=== PATIENT | female | born 1980 | race Caucasian/White ===

== ENCOUNTER 2016-12-25 08:00 | Outpatient (CLI) | payer MEDICAID ==
[2016-12-27 20:50] LABS: AMPHETAMINES NEGATIVE ng/mL (< 500); BARBITURATES NEGATIVE ng/mL (< 300); BENZODIAZEPINES NEGATIVE ng/mL (< 100); MARIJUANA METABOLITE NEGATIVE ng/mL (< 20); MEDMATCH AMPHETAMINES CONSISTENT (-); MEDMATCH BARBITURATES CONSISTENT (-); MEDMATCH BENZODIAZEPINES CONSISTENT (-); MEDMATCH COCAINE METAB CONSISTENT (-); MEDMATCH MARIJUANA METAB CONSISTENT (-); MEDMATCH METHADONE METAB CONSISTENT (-); MEDMATCH OPIATES CONSISTENT (-); MEDMATCH OXYCODONE CONSISTENT (-); MEDMATCH PHENCYCLIDINE CONSISTENT (-); METHADONE METABOLITE NEGATIVE ng/mL (< 100); OPIATES NEGATIVE ng/mL (< 100); OXIDANT NEGATIVE mcg/mL (< 200); PHENCYCLIDINE NEGATIVE ng/mL (< 25)
== END 2016-12-25 23:59 | disposition home or self-care (01) ==
LOC: LAB.R 08:00
PROVIDERS: ATTEND Nurse Practitioner Family
DX: R56.9 Unspecified convulsions (principal)
CPT/HCPCS: 80307

== ENCOUNTER 2017-06-17 10:03 | Outpatient (CLI) | payer MEDICAID | END 2017-06-17 10:04 | disposition EMS.NT | LOC: EMS 10:03 | PROVIDERS: ATTEND Surgery | DX: R56.9 Unspecified convulsions (principal) ==

== ENCOUNTER 2019-07-13 17:58 | Outpatient (CLI) | payer MEDICAID | END 2019-07-13 17:59 | disposition critical access hospital (66) | LOC: EMS 17:58 | PROVIDERS: ATTEND Surgery | DX: R07.9 Chest pain, unspecified (principal); R52 Pain, unspecified; R68.83 Chills (without fever) | CPT/HCPCS: A0425; A0429; A0999 ==

== ENCOUNTER 2019-07-13 18:24 | Emergency (ER) | payer MEDICAID ==
[2019-07-13] MEDS ORDERED: SODIUM CHLORIDE 0.9% 1,000 ML IV ONE (18:51)
[2019-07-13 19:19] LABS: MUDS CUTOFF CONCENTRATIONS CUTOFF CONC BELOW:
[2019-07-13 19:27] LABS: BASOPHILS % (AUTO) 0.4 %; EOSINOPHILS % (AUTO) 0.4 %; HGB - HEMOGLOBIN 9.8 g/dL (12.0-16.0); LYMPHOCYTES # (AUTO) 1.4 10^3/uL (1.5-3.5); LYMPHOCYTES % (AUTO) 48.8 %; MEAN CORPUSCULAR HEMOGLOBIN 21.4 pg (27.0-31.0); MEAN CORPUSCULAR HGB CONC 29.1 g/dL (32.0-36.0); MEAN CORPUSCULAR VOLUME 73.6 fL (81.0-99.0); MEAN PLATELET VOLUME 9.1 fL (7.9-10.8); MONOCYTES # (AUTO) 0.2 10^3/uL (0.0-1.0); MONOCYTES % (AUTO) 7.8 %; NEUTROPHILS # (AUTO) 1.2 10^3/uL (1.5-6.6); NEUTROPHILS % (AUTO) 42.2 %; PLT - PLATELET COUNT 89 10^3/uL (130-450); RED BLOOD COUNT 4.58 10^6/uL (4.20-5.40); WHITE BLOOD COUNT 2.8 x10^3/uL (4.8-10.8)
[2019-07-13 19:30] LABS: AMPHETAMINE SCREEN,URINE NEGATIVE (NEGATIVE); BENZODIAZEPINES SCREEN, URINE NEGATIVE (NEGATIVE); COCAINE SCREEN URINE NEGATIVE (NEGATIVE); METHADONE SCREEN, URINE NEGATIVE (NEGATIVE); METHAMPHETAMINES SCREEN, URINE NEGATIVE (NEGATIVE); OPIATE SCREEN, URINE NEGATIVE (NEGATIVE); OXYCODONE SCREEN, URINE NEGATIVE (NEGATIVE); PROPOXYPHENE SCREEN, URINE NEGATIVE (NEGATIVE); TRICYCLIC ANTIDEPRESSANT,URINE NEGATIVE (NEGATIVE)
[2019-07-13 19:37] LABS: ALBUMIN 4.4 g/dL (3.2-5.5); ALBUMIN/GLOBULIN RATIO 1.3 (1.0-2.2); BILIRUBIN,TOTAL 0.8 mg/dL (0.2-1.0); CALCIUM 8.5 mg/dL (8.5-10.3); CREATININE 0.5 mg/dL (0.4-1.0); TOTAL PROTEIN 7.7 g/dL (6.7-8.2)
[2019-07-13 19:57] LABS: PLATELET ESTIMATE, MANUAL DECREASED (<130,000) (NORMAL); PLATELET MORPHOLOGY NORMAL APPEARANCE (NORMAL)
[2019-07-13 19:58] LABS: DIFFERENTIAL COMMENT MANUAL=AUTO DIFF
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
[2019-07-13] MEDS ORDERED: FOLIC ACID INJ 1 MG, THIAMINE INJ 100 MG, MAGNESIUM SULFATE 2 GM, MULTIVITAMIN 10 ML in... IV STA ×5 (21:10)
[2019-07-13] MEDS ORDERED: FOLIC ACID 5 MG/1 ML 10ML MDV ONE (21:18)
[2019-07-13] MEDS ORDERED: MAGNESIUM SULFATE 1 GM/2 ML VIAL ONE (21:18)
[2019-07-13] MEDS ORDERED: THIAMINE 100 MG/1 ML 2 ML MDV ONE (21:18)
[2019-07-13 21:22] LABS: INR 1.1 (0.8-1.2)
[2019-07-14] MEDS ORDERED: LORazepam 2 MG/ML VIAL IVP STA (05:13)
[2019-07-14 14:08] VITALS: BP 126/82
[2019-07-14] MEDS ORDERED: LORazepam 1 MG TABLET PO STA (14:17)
== END 2019-07-14 14:43 ==
LOC: EDUNIT# → ED 18:24
DX: R45.851 Suicidal ideations (principal); F10.229 Alcohol dependence with intoxication, unspecified; F17.200 Nicotine dependence, unspecified, uncomplicated
CPT/HCPCS: 36415; 80053; 80306; 80320; 82607; 82746; 83540; 83690; 84466; 85025; 85610; 96361; 96365; 99283; 99285; J2060; J3411; J8499; 80048

== ENCOUNTER 2019-07-20 01:38 | Outpatient (CLI) | payer MEDICAID | END 2019-07-20 01:39 | disposition critical access hospital (66) | LOC: EMS 01:38 | PROVIDERS: ATTEND Surgery | DX: Z72.89 Other problems related to lifestyle (principal) | CPT/HCPCS: A0425; A0429; A0999 ==

== ENCOUNTER 2019-07-20 01:56 | Emergency (ER) | payer MEDICAID ==
--- NOTE | 2019-07-20 02:03 | ED Physician Documentation ---
History of Present Illness - Stated complaint Stated Complaint: ETOH - Chief complaint Chief Complaint: Neuro - History obtained from History obtained from: Patient (limited due to intoxication, fluctuating level of cooperation), EMS - History of Present Illness Timing: Today - Additonal information Additional information: evaluated in this ED 07/13/2019 for depression and alcoholism; she was held overnight pending sobriety and then placement, and on 07/13, she was transferred to [facility]. Per medic report, patient was discharged earlier today and resumed drinking alcohol. Patient admits to drinking alcohol today. She says she hasn't slept in four days and she blames her drinking on her insomnia. She is angry at times during H+P and will not answer ROS questions. She says she wants to be readmitted to [place]. 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 - Present Medications Home Medications: Ambulatory Orders Medication Instructions Recorded Confirmed Ciprofloxacin [Cipro] 500 mg PO BID #20 tablet 04/05/13 Disulfiram [Antabuse] 500 mg PO DAILY #14 tablet 04/05/13 Lorazepam [Ativan] 1 mg PO TID PRN #20 tablet 04/05/13 Nitrofurantoin Monohyd/M-Cryst 100 mg PO 04/05/13 04/05/13 [Macrobid 100 mg Capsule] Nitrofurantoin Monohyd/M-Cryst 100 mg PO BID #10 capsule 07/20/19 [Macrobid 100 mg Capsule] - Allergies Allergies/Adverse Reactions: Allergies Allergy/AdvReac Type Severity Reaction Status Date / Time iron dextran complex Allergy Mild Diaphoresis Verified 04/05/13 17:31 - Social History Does the pt smoke?: Yes Smoking Status: Current every day smoker Does the pt drink ETOH?: Yes Does the pt have substance abuse?: No - POLST Patient has POLST: No PD ED PE NORMAL - Vitals Vital signs reviewed: Yes - General General: Alert and oriented X 3, No acute distress, Well developed/nourished, Other (strong odor s/o ethanol on breath.) - HEENT HEENT: Atraumatic, PERRL, EOMI, Moist mucous membranes - Cardiac Cardiac: RRR, No murmur - Respiratory Respiratory: No respiratory distress, Clear bilaterally - Abdomen Abdomen: Soft, Non tender - Derm Derm: Normal color, Warm and dry - Neuro Eye Opening: Spontaneous Motor: Obeys Commands Verbal: Oriented GCS Score: 15 PD ED PE EXPANDED - Psych Psych: Intoxicated / AOB, Withdrawn (withdrawn at times, but also becomes angry at times without provocation. she is not violent nor threatening) Results - Vitals Vitals: Vital Signs - 24 hr 07/20/19 07/20/19 07/20/19 01:59 05:53 11:39 Temperature 36.6 C 37.0 C Heart Rate 82 89 Respiratory 17 22 Rate Blood Pressure 106/76 92/66 89/63 L O2 Saturation 97 100 Oxygen O2 Source Room air - Labs Labs: Laboratory Tests 07/20/19 07/20/19 07/20/19 02:29 02:29 02:41 WBC 4.0 L RBC 4.61 Hgb 10.1 L Hct 35.3 L MCV 76.6 L MCH 21.9 L MCHC 28.6 L RDW 23.4 H Plt Count 175 MPV 9.8 Neut # (Auto) 1.7 Lymph # (Auto) 1.8 [place] # (Auto) 0.3 Eos # (Auto) 0.1 Baso # (Auto) 0.0 Absolute Nucleated RBC 0.00 Nucleated RBC % 0.0 Manual Slide Review Indicated Platelet Estimate NORMAL (130-450,000) Platelet Morphology NORMAL APPEARANCE RBC Morph Micro Appear 2+ HYPOCHROMASIA Sodium 145 Potassium 3.8 Chloride 111 Carbon Dioxide 23 Anion Gap 11.0 BUN 7 Creatinine 0.4 Estimated GFR (MDRD) 176 Glucose 116 H Calcium 9.1 Total Bilirubin 0.5 AST 189 H ALT 249 H Alkaline Phosphatase 95 Total Protein 8.2 Albumin 4.6 Globulin 3.6 Albumin/Globulin Ratio 1.3 Lipase 51 Urine Color Urine Clarity Urine pH Ur Specific [place] Urine Protein Urine Glucose (UA) Urine Ketones Urine Occult Blood Urine Nitrite Urine Bilirubin Urine Urobilinogen Ur Leukocyte Esterase Urine RBC Urine WBC Ur Squamous Epith Cells Urine Bacteria Ur Microscopic Review Urine Culture Comments Urine HCG, Qual Salicylates < 6.0 Urine Opiates Screen NEGATIVE Ur Oxycodone Screen NEGATIVE Urine Methadone Screen NEGATIVE Ur Propoxyphene Screen NEGATIVE Acetaminophen < 10 L Ur Barbiturates Screen NEGATIVE Ur Tricyclics Screen NEGATIVE Ur Phencyclidine Scrn NEGATIVE Ur Amphetamine Screen NEGATIVE U Methamphetamines Scrn NEGATIVE U Benzodiazepines Scrn NEGATIVE Urine Cocaine Screen NEGATIVE U Cannabinoids Screen NEGATIVE Ethyl Alcohol 365.2 07/20/19 02:41 WBC RBC Hgb Hct MCV MCH MCHC RDW Plt Count MPV Neut # (Auto) Lymph # (Auto) [place] # (Auto) Eos # (Auto) Baso # (Auto) Absolute Nucleated RBC Nucleated RBC % Manual Slide Review Platelet Estimate Platelet Morphology RBC Morph Micro Appear Sodium Potassium Chloride Carbon Dioxide Anion Gap BUN Creatinine Estimated GFR (MDRD) Glucose Calcium Total Bilirubin AST ALT Alkaline Phosphatase Total Protein Albumin Globulin Albumin/Globulin Ratio Lipase Urine Color YELLOW Urine Clarity SL. CLOUDY Urine pH 5.5 Ur Specific [place] <=1.005 Urine Protein NEGATIVE Urine Glucose (UA) NEGATIVE Urine Ketones NEGATIVE Urine Occult Blood NEGATIVE Urine Nitrite POSITIVE H Urine Bilirubin NEGATIVE Urine Urobilinogen 0.2 (NORMAL) Ur Leukocyte Esterase LARGE H Urine RBC None Seen Urine WBC 11-25 H Ur Squamous Epith Cells RARE Squamous Urine Bacteria Few Ur Microscopic Review INDICATED Urine Culture Comments INDICATED Urine HCG, Qual NEGATIVE Salicylates Urine Opiates Screen Ur Oxycodone Screen Urine Methadone Screen Ur Propoxyphene Screen Acetaminophen Ur Barbiturates Screen Ur Tricyclics Screen Ur Phencyclidine Scrn Ur Amphetamine Screen U Methamphetamines Scrn U Benzodiazepines Scrn Urine Cocaine Screen U Cannabinoids Screen Ethyl Alcohol PD MEDICAL DECISION MAKING - ED course Complexity details: reviewed old records, reviewed results, re-evaluated patient, considered differential, d/w patient ED course: Patient signed out to Dr. London at end of my shift, pending sobriety for SW consult Departure - Departure Disposition: 01 Home, Self Care Clinical Impression: Alcohol intoxication, Urinary tract infection Condition: Fair Instructions: ED Alcohol Intoxication, ED UTI Cystitis Female Prescriptions: Nitrofurantoin Monohyd/M-Cryst [Macrobid 100 mg Capsule] 100 mg PO BID #10 capsule Discharge Date/Time: 07/20/19 12:07
[2019-07-20] MEDS ORDERED: LORazepam 0.5 MG TABLET PO STA (02:04)
[2019-07-20 02:34] LABS: BASOPHILS % (AUTO) 0.3 %; EOSINOPHILS # (AUTO) 0.1 10^3/uL (0.0-0.7); EOSINOPHILS % (AUTO) 1.5 %; HGB - HEMOGLOBIN 10.1 g/dL (12.0-16.0); LYMPHOCYTES # (AUTO) 1.8 10^3/uL (1.5-3.5); LYMPHOCYTES % (AUTO) 46.1 %; MEAN CORPUSCULAR HEMOGLOBIN 21.9 pg (27.0-31.0); MEAN CORPUSCULAR HGB CONC 28.6 g/dL (32.0-36.0); MEAN CORPUSCULAR VOLUME 76.6 fL (81.0-99.0); MEAN PLATELET VOLUME 9.8 fL (7.9-10.8); MONOCYTES # (AUTO) 0.3 10^3/uL (0.0-1.0); MONOCYTES % (AUTO) 8.3 %; NEUTROPHILS # (AUTO) 1.7 10^3/uL (1.5-6.6); NEUTROPHILS % (AUTO) 43.3 %; PLT - PLATELET COUNT 175 10^3/uL (130-450); RED BLOOD COUNT 4.61 10^6/uL (4.20-5.40); RED CELL DISTRIBUTION WIDTH 23.4 % (12.0-15.0)
[2019-07-20 02:50] LABS: ACETAMINOPHEN < 10 ug/mL (10-30); ALBUMIN 4.6 g/dL (3.2-5.5); ALBUMIN/GLOBULIN RATIO 1.3 (1.0-2.2); ALKALINE PHOSPHATASE 95 IU/L (42-121); ALT ALANINE AMINOTRANSFERASE 249 IU/L (10-60); AST ASPARTATE AMINOTRANSFERASE 189 IU/L (10-42); BILIRUBIN,TOTAL 0.5 mg/dL (0.2-1.0); BUN - BLOOD UREA NITROGEN 7 mg/dL (6-20); CALCIUM 9.1 mg/dL (8.5-10.3); CARBON DIOXIDE - CO2 23 mmol/L (21-32); CHLORIDE 111 mmol/L (101-111); CREATININE 0.4 mg/dL (0.4-1.0); GLUCOSE 116 mg/dL (70-100); LIPASE 51 U/L (22-51); SALICYLATE < 6.0 mg/dL; SODIUM 145 mmol/L (135-145); TOTAL PROTEIN 8.2 g/dL (6.7-8.2)
[2019-07-20 02:51] LABS: MUDS CUTOFF CONCENTRATIONS CUTOFF CONC BELOW:
[2019-07-20 02:52] LABS: BILIRUBIN,URINE NEGATIVE (NEGATIVE); GLUCOSE, URINE (UA) NEGATIVE (NEGATIVE); KETONES,URINE (UA) NEGATIVE (NEGATIVE); LEUKOCYTE ESTERASE, URINE LARGE (NEGATIVE); NITRITE,URINE POSITIVE (NEGATIVE); OCCULT BLOOD,URINE NEGATIVE (NEGATIVE); PH,URINE 5.5 PH (5.0-7.5); PROTEIN,URINE NEGATIVE (NEGATIVE); UROBILINOGEN,URINE 0.2 (NORMAL) E.U./dL (NORMAL)
[2019-07-20 02:54] LABS: CLARITY,URINE SL. CLOUDY (CLEAR); HCG UR QUAL NEGATIVE
[2019-07-20 02:57] LABS: BACTERIA,URINE Few /HPF (None Seen); RBC,URINE None Seen /HPF (0-5); SQUAMOUS EPITHELIAL CELL,UR RARE Squamous (<= Few)
[2019-07-20] MEDS ORDERED: NITROFURANTOIN MACRO 100 MG CAPSULE PO STA (03:01)
[2019-07-20 03:03] LABS: AMPHETAMINE SCREEN,URINE NEGATIVE (NEGATIVE); BENZODIAZEPINES SCREEN, URINE NEGATIVE (NEGATIVE); COCAINE SCREEN URINE NEGATIVE (NEGATIVE); METHADONE SCREEN, URINE NEGATIVE (NEGATIVE); METHAMPHETAMINES SCREEN, URINE NEGATIVE (NEGATIVE); OPIATE SCREEN, URINE NEGATIVE (NEGATIVE); OXYCODONE SCREEN, URINE NEGATIVE (NEGATIVE); PROPOXYPHENE SCREEN, URINE NEGATIVE (NEGATIVE); TRICYCLIC ANTIDEPRESSANT,URINE NEGATIVE (NEGATIVE)
[2019-07-20 03:06] LABS: PLATELET ESTIMATE, MANUAL NORMAL (130-450,000) (NORMAL); PLATELET MORPHOLOGY NORMAL APPEARANCE (NORMAL)
--- NOTE | 2019-07-20 10:05 | ED Physician Documentation ---
ED Addendum - Addendum Addendum: 07/20/19 10:02 The patient has been resting comfortably this morning in the ER. No notable withdrawal symptoms at this time. Social work came to talk with her regarding detox and there was bed availability at [facility] where the patient had recently been. The information was referred to [facility] for review and likely will accept her. We will watch for withdrawal symptoms and treat accordingly. She is given breakfast. No other problems at this time. She is denying suicidal ideation right now.
[2019-07-20 11:41] VITALS: BP 89/63
== END 2019-07-20 12:07 | disposition home or self-care (01) ==
LOC: EDUNIT# → EEVIPCON 01:56 → ED 01:56
DX: F10.129 Alcohol abuse with intoxication, unspecified (principal); N39.0 Urinary tract infection, site not specified; F17.200 Nicotine dependence, unspecified, uncomplicated
CPT/HCPCS: 36415; 80053; 80306; 80307; 80320; 80329; 81001; 81025; 83690; 85025; 87086; 87181; 99281; 99283; A9270; 81003

== ENCOUNTER 2020-03-18 13:54 | Outpatient (CLI) | payer MEDICAID | END 2020-03-18 13:55 | disposition critical access hospital (66) | LOC: EMS 13:54 | PROVIDERS: ATTEND Surgery | DX: R56.9 Unspecified convulsions (principal) | CPT/HCPCS: A0425; A0427; A0999 ==

== ENCOUNTER 2020-03-18 14:15 | Inpatient (IN) | payer MEDICAID ==
[2020-03-18] MEDS ORDERED: ONDANSETRON 4 MG/2 ML VIAL IVP STA (14:26)
[2020-03-18] MEDS ORDERED: THIAMINE INJ 100 MG in SODIUM CHLORIDE 0.9% 50 ML IV STA (14:26)
[2020-03-18] MEDS ORDERED: LORazepam 2 MG/ML VIAL IVP STA ×2 (14:26→15:29)
[2020-03-18] MEDS ORDERED: SODIUM CHLORIDE 0.9% 1,000 ML IV STA (14:26)
--- NOTE | 2020-03-18 14:27 | ED Physician Documentation ---
PD HPI SEIZURE - Stated complaint Stated Complaint: SEIZURE - Chief complaint Chief Complaint: Neuro - History obtained from History obtained from: Patient - Additional information Additional information: 39-year-old woman with history of alcoholism quit drinking yesterday. Today she had carpopedal spasms and then syncope with potential seizure activity. She has had alcohol withdrawal seizures in the past. Denies headache. She has had mild auditory hallucinations doorbell is ringing or somebody is knocking when nobody there. 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 - Present Medications Home Medications: Ambulatory Orders Medication Instructions Recorded Confirmed Ciprofloxacin [Cipro] 500 mg PO BID #20 tablet 04/05/13 Disulfiram [Antabuse] 500 mg PO DAILY #14 tablet 04/05/13 Lorazepam [Ativan] 1 mg PO TID PRN #20 tablet 04/05/13 Nitrofurantoin Monohyd/M-Cryst 100 mg PO 04/05/13 04/05/13 [Macrobid 100 mg Capsule] Nitrofurantoin Monohyd/M-Cryst 100 mg PO BID #10 capsule 07/20/19 [Macrobid 100 mg Capsule] - Allergies Allergies/Adverse Reactions: Allergies Allergy/AdvReac Type Severity Reaction Status Date / Time iron dextran complex Allergy Mild Diaphoresis Verified 03/18/20 14:20 - Social History Does the pt smoke?: Yes Smoking Status: Current every day smoker Does the pt drink ETOH?: Yes Does the pt have substance abuse?: No - POLST Patient has POLST: No PD ED PE NORMAL - Vitals Vital signs reviewed: Yes - General General: Alert and oriented X 3, Other (She appears quite shaky with coarse tremors in the upper extremities.) - HEENT HEENT: PERRL, EOMI - Neck Neck: Supple, no meningeal sign, No bony TTP - Cardiac Cardiac: RRR, No murmur - Respiratory Respiratory: No respiratory distress, Clear bilaterally - Abdomen Abdomen: Non tender - Back Back: No CVA TTP, No spinal TTP - Derm Derm: Normal color, Warm and dry - Extremities Extremities: No edema, No calf tenderness / cord - Neuro Neuro: Alert and oriented X 3, No motor deficit, No sensory deficit, Normal speech Results - Vitals Vitals: Vital Signs - 24 hr 03/18/20 03/18/20 14:20 14:25 Temperature 36.6 C 36.7 C Heart Rate 88 88 Respiratory 16 16 Rate Blood Pressure 122/86 H 122/86 H O2 Saturation 98 98 Oxygen O2 Source Room air - Labs Labs: Laboratory Tests 03/18/20 03/18/20 14:35 14:35 WBC 2.9 L RBC 3.43 L Hgb 8.4 L Hct 29.2 L MCV 85.1 MCH 24.5 L MCHC 28.8 L RDW 21.8 H Plt Count 148 MPV 7.9 Neut # (Auto) 2.2 Lymph # (Auto) 0.5 L Mcmullen # (Auto) 0.3 Eos # (Auto) 0.0 Baso # (Auto) 0.0 Absolute Nucleated RBC 0.00 Band Neuts % (Manual) Not Reportable Abnorm Lymph % (Manual) Not Reportable Nucleated RBC % 0.0 Neutrophils # (Manual) Not Reportable Lymphocytes # (Manual) Not Reportable Monocytes # (Manual) Not Reportable Eosinophils # (Manual) Not Reportable Basophils # (Manual) Not Reportable Differential Comment MANUAL=AUTO DIFF Manual Slide Review Indicated Platelet Estimate NORMAL (130-450,000) Platelet Morphology NORMAL APPEARANCE RBC Morph Micro Appear 1+ POLYCHROMASIA Sodium 140 Potassium 2.5 L* Chloride 93 L Carbon Dioxide 19 L Anion Gap 28.0 H BUN 7 Creatinine 0.6 Estimated GFR (MDRD) 110 Glucose 83 Calcium 7.9 L Magnesium 0.9 L* Total Bilirubin 1.7 H AST 133 H ALT 30 Alkaline Phosphatase 162 H Total Protein 7.2 Albumin 3.8 Globulin 3.4 Albumin/Globulin Ratio 1.1 Lipase 40 Ethyl Alcohol 106.9 PD MEDICAL DECISION MAKING - ED course ED course: 39-year-old woman presents after an alcohol withdrawal seizure. She is quite shaky. CIWA score is 24. Has significant electrolyte abnormality anemia and hypomagnesemia. She was administered both IV and oral potassium, IV magnesium, and divided doses of lorazepam in the department. Also IV thiamine. Given the high CIWA score and significant electrolyte abnormalities she was presented to Dr. Comer for admission at 3:30 PM. Departure - Departure Disposition: 66 [facility] DC/Xfer Clinical Impression: Hypokalemia, Hypomagnesemia Alcohol withdrawal seizure Qualifiers: Complication of substance-induced condition: with perceptual disturbance Qualified Code(s): F10.232 - Alcohol dependence with withdrawal with perceptual disturbance; R56.9 - Unspecified convulsions Condition: Serious
[2020-03-18 14:40] LABS: BASOPHILS % (AUTO) 1.4 %; EOSINOPHILS % (AUTO) 0.3 %; HGB - HEMOGLOBIN 8.4 g/dL (12.0-16.0); LYMPHOCYTES # (AUTO) 0.5 10^3/uL (1.5-3.5); LYMPHOCYTES % (AUTO) 15.6 %; MEAN CORPUSCULAR HEMOGLOBIN 24.5 pg (27.0-31.0); MEAN CORPUSCULAR HGB CONC 28.8 g/dL (32.0-36.0); MEAN CORPUSCULAR VOLUME 85.1 fL (81.0-99.0); MEAN PLATELET VOLUME 7.9 fL (7.9-10.8); MONOCYTES # (AUTO) 0.3 10^3/uL (0.0-1.0); MONOCYTES % (AUTO) 8.5 %; NEUTROPHILS # (AUTO) 2.2 10^3/uL (1.5-6.6); NEUTROPHILS % (AUTO) 73.9 %; PLT - PLATELET COUNT 148 10^3/uL (130-450); RED BLOOD COUNT 3.43 10^6/uL (4.20-5.40); RED CELL DISTRIBUTION WIDTH 21.8 % (12.0-15.0); WHITE BLOOD COUNT 2.9 x10^3/uL (4.8-10.8)
[2020-03-18 14:59] LABS: ALBUMIN 3.8 g/dL (3.2-5.5); ALBUMIN/GLOBULIN RATIO 1.1 (1.0-2.2); BILIRUBIN,TOTAL 1.7 mg/dL (0.2-1.0); CALCIUM 7.9 mg/dL (8.5-10.3); CREATININE 0.6 mg/dL (0.4-1.0); TOTAL PROTEIN 7.2 g/dL (6.7-8.2)
[2020-03-18 15:00] LABS: MAGNESIUM 0.9 mg/dL (1.7-2.8)
[2020-03-18] MEDS ORDERED: MAGNESIUM SULFATE 2 GRAM 2 GM/50 ML BAG IV ONE (15:01)
[2020-03-18] MEDS ORDERED: POTASSIUM CHLORIDE 20 MEQ TABLET PO STA (15:01)
[2020-03-18] MEDS ORDERED: POTASSIUM CHLOR 10 MEQ/100 ML 10 MEQ/100 ML BAG IV ONE (15:01)
[2020-03-18 15:15] LABS: DIFFERENTIAL COMMENT MANUAL=AUTO DIFF; PLATELET ESTIMATE, MANUAL NORMAL (130-450,000) (NORMAL); PLATELET MORPHOLOGY NORMAL APPEARANCE (NORMAL)
[2020-03-18] MEDS ORDERED: SODIUM CHLORIDE FLUSH 0.9% 10 ML SYRINGE IVP PRN (15:59)
[2020-03-18] MEDS ORDERED: IBUPROFEN 600 MG TABLET PO PRN (15:59)
[2020-03-18] MEDS ORDERED: LORazepam 2 MG/ML VIAL IVP PRN (16:03)
[2020-03-18 16:31] LABS: BASOPHILS % (AUTO) 0.5 %; EOSINOPHILS % (AUTO) 0.8 %; HGB - HEMOGLOBIN 7.7 g/dL (12.0-16.0); LYMPHOCYTES # (AUTO) 0.4 10^3/uL (1.5-3.5); LYMPHOCYTES % (AUTO) 10.3 %; MEAN CORPUSCULAR HGB CONC 29.5 g/dL (32.0-36.0); MEAN CORPUSCULAR VOLUME 84.7 fL (81.0-99.0); MEAN PLATELET VOLUME 8.7 fL (7.9-10.8); MONOCYTES # (AUTO) 0.4 10^3/uL (0.0-1.0); MONOCYTES % (AUTO) 8.8 %; NEUTROPHILS # (AUTO) 3.2 10^3/uL (1.5-6.6); NEUTROPHILS % (AUTO) 79.3 %; PLT - PLATELET COUNT 145 10^3/uL (130-450); RED BLOOD COUNT 3.08 10^6/uL (4.20-5.40); RED CELL DISTRIBUTION WIDTH 21.3 % (12.0-15.0)
[2020-03-18 16:32] LABS: INR 1.2 (0.8-1.2); PT - PROTHROMBIN TIME 13.6 secs (9.9-12.6)
[2020-03-18 17:15] LABS: MUDS CUTOFF CONCENTRATIONS CUTOFF CONC BELOW:
[2020-03-18 17:19] LABS: GLUCOSE, URINE (UA) NEGATIVE (NEGATIVE); KETONES,URINE (UA) 40 mg/dL (NEGATIVE); LEUKOCYTE ESTERASE, URINE NEGATIVE (NEGATIVE); NITRITE,URINE NEGATIVE (NEGATIVE); OCCULT BLOOD,URINE NEGATIVE (NEGATIVE); PROTEIN,URINE NEGATIVE (NEGATIVE); UROBILINOGEN,URINE 2 E.U./dL (NORMAL)
[2020-03-18 17:22] LABS: BILIRUBIN,URINE NEGATIVE (NEGATIVE); CLARITY,URINE CLOUDY (CLEAR); HCG UR QUAL NEGATIVE; ICTOTEST,URINE NEGATIVE
[2020-03-18 17:29] LABS: AMORPHOUS SEDIMENT,UR Rare /LPF; BACTERIA,URINE Many /HPF (None Seen); RBC,URINE 0-5 /HPF (0-5); SQUAMOUS EPITHELIAL CELL,UR FEW Squamous (<= Few)
[2020-03-18 17:30] LABS: AMPHETAMINE SCREEN,URINE NEGATIVE (NEGATIVE); BENZODIAZEPINES SCREEN, URINE POSITIVE (NEGATIVE); COCAINE SCREEN URINE NEGATIVE (NEGATIVE); METHADONE SCREEN, URINE NEGATIVE (NEGATIVE); METHAMPHETAMINES SCREEN, URINE NEGATIVE (NEGATIVE); OPIATE SCREEN, URINE NEGATIVE (NEGATIVE); OXYCODONE SCREEN, URINE NEGATIVE (NEGATIVE); PROPOXYPHENE SCREEN, URINE NEGATIVE (NEGATIVE); TRICYCLIC ANTIDEPRESSANT,URINE NEGATIVE (NEGATIVE)
[2020-03-18 17:50] LABS: PLATELET ESTIMATE, MANUAL NORMAL (130-450,000) (NORMAL); PLATELET MORPHOLOGY NORMAL APPEARANCE (NORMAL)
[2020-03-18] MEDS: SODIUM CHLORIDE FLUSH 0.9% 10 ML SYRINGE IVP SCH (17:58)
[2020-03-18] MEDS ORDERED: POTASSIUM CHLOR 10 MEQ/100 ML 10 MEQ/100 ML BAG IV SCH (19:00)
--- NOTE | 2020-03-18 20:11 | HISTORY & PHYSICAL EXAMINATION ---
DATE OF SERVICE: 03/18/2020 Physician: Suri Comer MD HISTORY OF PRESENT ILLNESS: This is a 39-year-old female of descent, who has a history of alcohol abuse. She drinks one gallon of vodka per day as shots. She has never been admitted here before. She describes that occasionally, when she decreases her drinking, she gets alcohol withdrawal seizures. Two months ago, she went to [facility] to visit family members, where she started to have cyclical nausea and vomiting, thinks she was also throwing up blood at the time. When she returned from [facility], she needed hospitalization at [facility] for about 4 days for alcohol withdrawal seizures and was on Valium. At that point, she was connected with a therapist who has been helping her decrease alcohol abuse, and she has decreased the alcohol intake over the past 6 weeks from one gallon a day of vodka to one- half a gallon a day. The patient's history shows that she was homeless, living in a trailer with her boyfriend. She now tells me that she lives in a hotel and gets SSI. Her boyfriend intermittently goes to take care of his elderly mother. Today, while the patient was at her future in-laws house she had a seizure. She was offered to be taken to the emergency room by her boyfriend and, as she was walking to the car, she had a second seizure. An ambulance was called. In the ER, she was noted to have a CIWA score of greater than 20 with arm tremors mostly. She stated that her last alcohol intake was one day previously, none today. She also was found on labs to have marked electrolyte abnormalities with a potassium of 2.5, and magnesium of 0.9. PAST MEDICAL HISTORY: Alcohol abuse and bipolar disorder. ALLERGIES: IRON DEXTRAN COMPLEX. MEDICATIONS: None. FAMILY HISTORY: No inherited diseases. SOCIAL HISTORY: The patient smokes one cigarette a day, drinks alcohol as described above, uses marijuana infrequently, and no other drug abuse history. She is not working, gets SSI. She is currently "living in a hotel room." She was recently homeless. REVIEW OF SYSTEMS: She has not had any recent hematemesis. She describes intermittent poor appetite, sometimes 3 days in a row, and she currently has no appetite. She states that she "craves salt." There has been no fever, cough, or cardiac or pulmonary symptoms. She denies any leg edema or abdominal distention. She currently has mild abdominal tenderness. A comprehensive review of systems was performed and the pertinent positives are listed, the rest are negative. PHYSICAL EXAMINATION GENERAL: Middle-aged female of descent, who is in no distress. VITAL SIGNS: Blood pressure 122/86, heart rate of 88 in sinus rhythm, afebrile, room air saturation 100%. HEENT: Unremarkable. She has moist oral mucosa and good dentition. NECK: No JVD at a 30-degree upright angle. CHEST: Clear. HEART: Normal heart sounds. No murmurs. ABDOMEN: Soft. No organomegaly. No fluid wave. Normal bowel sounds. Tenderness to mild palpation in the epigastrium and left upper quadrant. There is no guarding or rebound. EXTREMITIES: No clubbing, cyanosis, or edema. NEUROLOGIC: Fine resting tremor of her hands. No nystagmus. No liver flap. LABORATORY DATA: Sodium 140, potassium 2.5, chloride 93, anion gap 28, BUN 7, creatinine 0.6, calcium 7.9, but albumin is 3.8, magnesium 0.9, bilirubin 1.7, AST 133, ALT 30, and alkaline phosphatase 162. INR of 1.2. White blood count 4.0, hemoglobin 7.7, and platelet count 145. Urinalysis had positive ketones, positive urobilinogen, high white blood cells, many bacteria, and a culture is indicated. Her urine hCG is negative. Her urine tox screen shows positive benzodiazepines. Her serum alcohol level was present at 106. IMPRESSION/DIAGNOSES 1. Alcohol withdrawal seizure. 3. Hypokalemia. 4. Hypomagnesemia. 5. Alcohol abuse. 6. Transaminitis. 7. Leukopenia. 8. Anemia. 9. History of bipolar disorder. PLAN: Admit the patient to inpatient status on telemetry. Begin a CIWA protocol using Ativan p.r.n. and also begin scheduled Librium for prevention of alcohol withdrawal. Start IV fluids with a banana bag containing magnesium, thiamine, multivitamin. Replace her potassium and magnesium with riders if needed. Order a bland diet. Will order guaiac of her stool because of the description of vomiting blood several weeks ago. Follow her electrolytes daily. Continue with outpatient alcohol abuse management as she has already been connected with. floorworker here to confirm that after discharge. DEEP VENOUS THROMBOSIS PROPHYLAXIS: SCDs. CODE STATUS: FULL CODE. ATTESTATION: Patient is expected to be discharged or transferred to another facility within 96 hours: Yes. cc: JAVIER Muhammad TD: 03/18/2020 19:00 [facility]
[2020-03-18] MEDS: chlordiazePOXIDE 25 MG CAPSULE PO SCH (21:41)
[2020-03-18] MEDS: FAMOTIDINE 20 MG/2 ML VIAL IVP SCH (21:42)
[2020-03-19] MEDS: SODIUM CHLORIDE FLUSH 0.9% 10 ML SYRINGE IVP SCH ×2 (00:23→08:30)
[2020-03-19 05:59] LABS: ALBUMIN 3.6 g/dL (3.2-5.5); ALBUMIN/GLOBULIN RATIO 1.2 (1.0-2.2); BILIRUBIN,TOTAL 1.6 mg/dL (0.2-1.0); CREATININE 0.4 mg/dL (0.4-1.0); MAGNESIUM 1.4 mg/dL (1.7-2.8); PHOSPHORUS 2.7 mg/dL (2.5-4.6); TOTAL PROTEIN 6.5 g/dL (6.7-8.2)
[2020-03-19] MEDS ORDERED: MAGNESIUM SULFATE 2 GRAM 2 GM/50 ML BAG IV ONE (06:04)
[2020-03-19] MEDS: POTASSIUM CHLOR 10 MEQ/100 ML 10 MEQ/100 ML BAG IV SCH ×4 (08:22→11:31)
[2020-03-19] MEDS: chlordiazePOXIDE 25 MG CAPSULE PO SCH (08:29)
[2020-03-19] MEDS: FAMOTIDINE 20 MG/2 ML VIAL IVP SCH (08:45)
[2020-03-19] MEDS ORDERED: polyethylene glycoL 3350 17 GM PACKET PO SCH (09:00)
[2020-03-19] MEDS ORDERED: DOCUSATE SODIUM 250 MG CAPSULE PO SCH (09:00)
[2020-03-19] MEDS ORDERED: SENNA 8.6 MG TABLET PO SCH (09:00)
[2020-03-19] MEDS ORDERED: MULTIVITAMIN 10 ML, FOLIC ACID INJ 1 MG, THIAMINE INJ 100 MG, MAGNESIUM SULFATE 2 GM in... IV SCH ×5 (09:00)
--- NOTE | 2020-03-19 09:17 | PHARMACY PROGRESS NOTE ---
- Best Possible Medication History Admit Date and Time: 03/18/20 1546 Processed by: Pharmacy Medication History completed: Yes Patient Interview: Pt interview ONLY source (NO HOME MEDICATIONS PER PATIENT INTERVIEW) As the person ultimately responsible for medication therapy, providers are able to order a medication from an existing home medication list in [facility] via the "Reconcile Routine" prior to Confirmation of that medication by clerical support specialist. Such practice is discouraged except when the physician, in their clinical judgment, deems that a medical need exists for a medication without regard to previous use.
--- NOTE | 2020-03-19 11:38 | Discharge Plan ---
Discharge Plan Problem Reviewed?: Yes Disposition: Home, Self Care Condition: Fair Prescriptions: chlordiazePOXIDE [Librium] 25 mg PO BID #5 capsule Thiamine [Vitamin B-1] 100 mg PO DAILY #30 tablet Diet: Soft Activity Restrictions: Activity as Tolerated Health Concerns: You were admitted to the hospital because of 2 alcohol-withdrawal seizures. You were also dehydrated and there was still alcohol in your blood stream. You are being discharged home with advice to stop alcohol intake. Several tablets of Librium have been prescribed to taper you down. A new prescription for Thiamine is also ordered which helps in patient's with alcohol abuse. Drink plenty of fluids (non-alcoholic) and stay well-hydrated. Continued to follow with your counselor regarding stopping alcohol abuse. Plan of Treatment: As above. Care Goals: Improvement in symptoms and stabilization are the goals. Assessment: Patient understands, instructions were provided for reminders. Additional Instructions or Follow Up instructions: If you have new or worsening symptoms, call your PCP or your Counselor for advice, or come to the ER. No Smoking: If you smoke, Please STOP! Call for help. Follow-up with: Yadi Denson ARNP [Physician No Access] -
--- NOTE | 2020-03-19 12:14 | DISCHARGE SUMMARY ---
Discharge Summary Admit Date: 03/18/20 Discharge Date: 03/19/20 Discharging Provider: Dr Suri Comer Primary Care Provider: Yadi Denson NP Code Status: Attempt Resuscitation Condition at Discharge: Fair Discharge Disposition: 01 Home, Self Care - HPI History of Present Illness: This is a 39 year-old women of descent, with a history of bipolar disorder and alcohol abuse; she drinks a gallon of vodka daily. She gets alcohol withdrawal seizures. About 2 months ago, she was visiting family in [facility] and had hematemesis. When she returned, she was hospitalized in [facility] for 4 days for alcohol withdrawal seizure and was treated with Valium and at discharge, started seeing a counselor for outpatient alcohol detox and rehab. In the past 6 weeks, she has decreased her alcohol intake to 1/2 gallon of vodka daily. She takes no meds. She was at her boyfriend's parents home, had not had alcohol for several hours and had a seizure. She awoke and they were planning for the boyfriend to drive her to an ER, when she had another seizure. EMS was called and she was bought to the ER here. Her CIWA score was over 20, mostly from tremors. She was also found to have severe electrolyte abnormalities with Potassium of 2.5 and Magnesium of 0.9. Her serum alcohol level was 106, bili was 1.7, AST 133, ALT 30, Alk Phos 162. She will be admitted for managing alcohol withdrawal seizures, alcohol abuse and her abnormal labs. - HOSPITAL COURSE Hospital Course: 1) Alcohol withdrawal seizures There were no more seizures. She was treated with Ativan prn per CIWA score and started on scheduled Librium 25 mg po bid, and was discharged with several tablets of Librium. 2) Hypokalemia This was replaced with K riders. 3) Hypomagnesemia This was replaced iv. 4) Alcohol abuse She received a banana bag for iv hydration and was discharged with Thiamine oral. She was seen by Social Work and advised to resume her outpatient management with her counselor. 5) Transaminitis The liver tests improved slightly to ALT 109, AST was 31 and bili 1.6 6) Leukopenia She very likely has marrow suppression from alcohol. The WBC was 2.9 at admission, and 4.0 at discharge. 7) Anemia As above and hemodilutional. The admission Hgb was 8.4 and 7.7 at discharge. 8) History of bipolar disorder She was on n o prescription meds for this currently. - ALLERGIES Allergies/Adverse Reactions: Allergies Allergy/AdvReac Type Severity Reaction Status Date / Time iron dextran complex Allergy Mild Diaphoresis Verified 03/18/20 14:20 - MEDICATIONS Home Medications: Ambulatory Orders Medication Instructions Recorded Confirmed Thiamine [Vitamin B-1] 100 mg PO DAILY #30 tablet 03/19/20 chlordiazePOXIDE [Librium] 25 mg PO BID #5 capsule 03/19/20 - PHYSICAL EXAM AT DISCHARGE General Appearance: positive: No acute distress, Alert Eyes Bilateral: positive: Normal inspection, EOMI ENT: positive: ENT inspection nml, No signs of dehydration Neck: positive: Nml inspection, No JVD Respiratory: positive: No respiratory distress, Breath sounds nml Cardiovascular: positive: Regular rate & rhythm, No murmur Abdomen: positive: Non-tender, Nml bowel sounds, No distention Skin: positive: Warm, Dry Extremities: positive: Non-tender, No pedal edema Neurologic/Psychiatric: positive: Oriented x3, Motor nml, Other (No tremor or nystagmus) - LABS Result Diagrams: 03/18/20 16:26 03/19/20 05:06 - DIAGNOSTIC IMAGING Diagnostic Imaging Results: Final report reviewed - FOLLOW UP Follow Up: See Alcohol Couselor soon in scheduled follow-up and PCP as per routine. - TIME SPENT Time Spent in Discharge (Minutes): 30
[2020-03-19 12:43] VITALS: BP 108/66
== END 2020-03-19 13:05 | disposition home or self-care (01) | DRG 897 ==
LOC: EDUNIT# → ED 14:15 → MS2 15:46
PROVIDERS: ADMIT Internal Medicine; ATTEND Internal Medicine
DX: F10.239 Alcohol dependence with withdrawal, unspecified (principal); R56.9 Unspecified convulsions; E87.6 Hypokalemia; E83.42 Hypomagnesemia; Y90.5 Blood alcohol level of 100-119 mg/100 ml; E86.0 Dehydration; R74.01 Elevation of levels of liver transaminase levels; F31.9 Bipolar disorder, unspecified; F17.210 Nicotine dependence, cigarettes, uncomplicated; D72.819 Decreased white blood cell count, unspecified; Z20.828 Contact with and (suspected) exposure to other viral communicable diseases; Z79.899 Other long term (current) drug therapy
CPT/HCPCS: 36415; 80053; 80306; 80320; 81001; 81025; 83690; 83735; 84100; 85025; 85610; 87086; 87635; 96365; 96368; 96375; 96376; 99285; A9270; J2060; J3411; J7040; 81003

== ENCOUNTER 2021-03-01 07:11 | Outpatient (CLI) | payer MEDICAID | END 2021-03-01 07:12 | disposition E | LOC: EMS 07:11 | DX: I46.9 Cardiac arrest, cause unspecified (principal) ==